=== PATIENT | female | born 2000 | race African-American/Black ===

== ENCOUNTER 2025-04-14 14:05 | Emergency (ER) | payer OTHER, SELFPAY ==
[2025-04-14] MEDS: TORADOL 15 MG IM (14:54)
--- NOTE | 2025-04-14 15:05 | ED.GENMED ---
History of Present Illness
General
Chief Complaint: Back Pain
Time Seen by Provider: 04/14/25 14:39
History of Present Illness
History of Present Illness:
Patient is a 24-year-old woman presenting to the emergency department with back pain. Patient states for the past week she has developed low back pain. Occasionally will go down her left leg. This feels similar to when she had sciatica when she
was . No numbness tingling no weakness. No saddle anesthesia. No urinary incontinence. No fevers or chills. No spinal injections. 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
that cause exacerbation of her upper back. No chest pain. She finished her period yesterday. No urinary symptoms
Phy Exam
Physical Exam
Physical Exam:
GENERAL: in no acute distress
HEENT: normocephalic, extraocular movements intact, moist oral mucosa
NECK: normal inspection
Back: No midline tenderness, diffuse paraspinal tenderness in the thoracic and lumbar region, negative straight leg raise
RESPIRATORY: no respiratory distress, clear to auscultation bilaterally
CARDIOVASCULAR: regular rate and rhythm
ABDOMEN/: soft, non-distended, non-tender to palpation, no rebound or guarding
EXTREMITIES: non-tender, no edema/swelling
NEUROLOGIC: awake and alert, moves all extremities, motor or sensory intact
SKIN: warm
Course
Orders/Labs/Results
Orders:
Orders
04/14/25 14:52
Ketorolac [Toradol] 15 mg IM NOW STA
Vital Signs
Initial and Last Documented VS:
Initial Vital Signs
Temp Pulse Resp Pulse Ox
98.7 F 96 16 100
04/14/25 14:07 04/14/25 14:07 04/14/25 14:07 04/14/25 14:07
Last Documented Vital Signs
Temp Pulse Resp Pulse Ox
98.7 F 96 16 100
04/14/25 14:07 04/14/25 14:07 04/14/25 14:07 04/14/25 14:07
MDM/Problems Addressed
Differential Diagnosis Includes:
24-year-old woman presenting to the emergency department with upper back pain as well as low back pain intermittently radiates down her left leg. Vitals are unremarkable and exam is reassuring. She does have reproducible tenderness to the areas.
No sensory deficits. Negative straight legs. Could be musculoskeletal versus component of sciatica given the intermittent radiation of the pain. History and exam not consistent with cauda equina osteomyelitis epidural abscess fracture. History
exam not consistent with renal pathology. Will give steroid and anti-inflammatory discussed with patient. She will follow-up with primary care doctor. Patient educated to keep stretching exercise in the back as well.
*Pulse Oximetry
SaO2: 100
Oxygen Mode of Delivery: Room air
Patient hypoxic: no
*Critical Care Note
Total Time (30-74mins, 75-104mins- exclusive of procedures): Not Applicable
ED Attending Note
-
Portions of this chart may have been created with voice recognition software.� Occasional wrong word or��sound alike� substitutions may have occurred due to the inherent limitations of voice recognition software.
Discharge Plan
Departure
Patient Disposition: Home (Routine Discharge)
Date of Disposition: 04/14/25
Time of Disposition: 15:03
Patient with high blood pressure during this ER visit?: No
Discharge Problem:
Back pain
Instructions: Low Back Pain (DC), Upper Back Pain (DC), Back exercises
Prescriptions:
New
methylprednisolone [Medrol (Aurelio)] 4 mg tablets,dose pack
See Rx Instructions .ROUTE .COMPLEX Qty: 21 0RF
Rx Instructions:
orally per package directions
Referrals:
NONE,* [Family Provider, Internal Medicine]
Activity Restrictions/Additional Instructions:
The exact cause of your back pain is unclear but it is likely musculoskeletal/mechanical low back pain that usually improves with conservative treatment after a few weeks.
You can take ibuprofen 400 mg (2 [id number] tablets) every 4 hours or 600 mg (3 [id number]-[id number]-[id number] tablets) every 6 hours as needed for pain.
You can take Tylenol 1000 mg (3 regular strength tablets or 2 extra strength tablets) every 6 hours as needed for pain up to 3 doses per day.
Wean yourself off of the ibuprofen as soon as your pain is tolerable. This medication, if used long-term, can have negative effects on the kidneys, heart and stomach. Tylenol is the safest medication but does not have the anti-inflammatory component.
Apply a heating pad 15-20 minutes at a time every few hours. Make sure not to sleep with the heating pad on as it can burn your skin. You may also try ice every few hours -- make sure not to apply an icepack directly to the skin. You can alternate
the two as well.
You can apply a lidocaine patch to the painful area every 8 hours as well.
Return to the emergency department if you develop inability to urinate, are unable to hold your stool, have numbness when your wipe yourself after using the bathroom, develop new weakness in the legs, develop a fever, if you have worsening pain or
if you have any increasing concerns.
If your pain is not improving over the next 1-2 weeks, please follow-up with your primary care doctor.
Interventions
Interventions:
*Risk Screen - Suicide Last Done: 04/14/25 14:07
*General Assessment Last Done: 04/14/25 14:36
*Neglect/Abuse Screening Last Done: 04/14/25 14:07
*ED- Fall Risk Assessment Last Done: 04/14/25 14:36
*ED COVID-19 Vaccine History Last Done: 04/14/25 14:36
ED-Musculoskeletal Assessment Last Done: 04/14/25 14:37
Discharge Date and Time
Print Language: BURMESE
[2025-04-14 15:22] VITALS: BP 121/77
== END 2025-04-14 15:23 | disposition home or self-care (01) ==
LOC: EMR 14:05
PROVIDERS: EMERGENCY PHYSICIAN Student in an Organized Health Care Education/Training Program
DX: M54.6 Pain in thoracic spine (principal); M54.50 Low back pain, unspecified
CPT/HCPCS: 96372; 99284